=== PATIENT | male | born 2000 | race Asian ===

== ENCOUNTER 2022-01-27 19:41 | Emergency (ER) | payer OTHER ==
[~2022-01-27] VITALS: Ht 165.1 cm; Wt 61.8 kg
[2022-01-27] MEDS ORDERED: ALBUTEROL 90 MCG/ACT 8GM HFA INHALER INH ONE (23:15)
[2022-01-27 23:49] VITALS: BP 112/69
== END 2022-01-28 00:22 | disposition home or self-care (01) ==
LOC: M ED 19:41
DX: J06.9 Acute upper respiratory infection, unspecified (principal); J20.9 Acute bronchitis, unspecified

== ENCOUNTER → 2022-06-26 | Outpatient (CLI) | payer OTHER ==
[~2022-06-26] MED LIST: PROHANCE 279.3MG/ML 5ML VIAL ONE
== END ==
LOC: M PLAIMG 10:42
PROVIDERS: ATTEND Ophthalmology
DX: H46.9 Unspecified optic neuritis (principal)
CPT/HCPCS: 70543; A9576

== ENCOUNTER → 2022-08-12 | Outpatient (CLI) | payer OTHER | LOC: M RAD 08:14 | PROVIDERS: ATTEND Optometrist | DX: S04.011D Injury of optic nerve, right eye, subsequent encounter (principal); Y93.9 Activity, unspecified; Y92.9 Unspecified place or not applicable ==

== ENCOUNTER → 2023-03-26 | Outpatient (CLI) | payer OTHER | LOC: M PLARAD 15:00 | PROVIDERS: ATTEND Physician Assistant | DX: H54.413A Blindness right eye category 3, normal vision left eye (principal); M50.222 Other cervical disc displacement at C5-C6 level ==